=== PATIENT | female | born 1940 | race Caucasian/White ===

== ENCOUNTER → 2016-07-19 | Outpatient (CLI) | payer MEDICARE, BC | END | disposition home or self-care (01) | LOC: LABPAT 10:00 | PROVIDERS: ATTEND Anesthesiology | DX: Z01.810 Encounter for preprocedural cardiovascular examination (principal); I10 Essential (primary) hypertension | CPT/HCPCS: 93005 ==

== ENCOUNTER 2016-07-23 09:29 | Inpatient (IN) | payer MEDICARE, BC ==
[2016-07-17 17:44] VITALS: BMI 36.8
[~2016-07-23 09:29] MED LIST: DEXAMETHASONE SOD PHOSPHATE 10 MG/ML 1 ML VIAL IV ONE; HEPARIN SODIUM,PORCINE 5,000 UNIT/ML 1 ML VIAL SQ ONE; HYDROmorphone 1 MG/ML 1 ML SYRINGE IVP PRN; LACTATED RINGERS 1,000 ML IV SCH; MIDAZOLAM 2 MG/2 ML VIAL IV PRN; SCOPOLAMINE 1.5MG/72HR PATCH TRANSDERM ONE; ceFAZolin 2 GM in SODIUM CHLORIDE 0.9% 100 ML IVPB ONE
[2016-07-23] MEDS ORDERED: LIDOCAINE 1% 20 ML VIAL (10MG/ML) FOR IV START INTRADERMA ONE (10:45)
[2016-07-23] MEDS: ONDANSETRON 4 MG/2 ML VIAL IVP ONE ×2 (10:52→15:57)
[2016-07-23] MEDS ORDERED: PROPOFOL 10 MG/ML 20 ML VIAL IV ONE (12:48)
[2016-07-23] MEDS ORDERED: GLYCOPYRROLATE 0.2 MG/ML 2 ML VIAL ONE (12:48)
[2016-07-23] MEDS ORDERED: NEOSTIGMINE 1 MG/ML 10 ML VIAL ONE (12:48)
[2016-07-23] MEDS ORDERED: fentaNYL (PF) 50 MCG/ML 2 ML AMP ONE (12:48)
[2016-07-23] MEDS ORDERED: LIDOCAINE 1% INJ 10MG/ML (20 ML MDV) ONE (12:48)
[2016-07-23] MEDS ORDERED: HYDROmorphone (PF) 1 MG/ML ONE (12:48)
[2016-07-23] MEDS ORDERED: MIDAZOLAM 2 MG/2 ML VIAL ONE (12:48)
[2016-07-23] MEDS ORDERED: ROCURONIUM BROMIDE 10 MG/ML 10 ML VIAL IV ONE (12:48)
[2016-07-23] MEDS ORDERED: SUCCINYLCHOLINE CHLORIDE VIAL 200 MG/10 ML VIAL IV ONE (12:48)
[2016-07-23] MEDS ORDERED: HEPARIN SODIUM,PORCINE 5,000 UNIT/ML 1 ML VIAL SQ ONE (12:50)
[2016-07-23] MEDS ORDERED: LACTATED RINGERS 1,000 ML IV ONE (14:52)
[2016-07-23] MEDS ORDERED: ONDANSETRON 4 MG/2 ML VIAL IVP PRN (15:01)
[2016-07-23] MEDS ORDERED: NALOXONE 0.4 MG/ML 1 ML VIAL IV PRN (15:01)
[2016-07-23] MEDS ORDERED: HYDROmorphone 1 MG/ML 1 ML SYRINGE IV PRN (15:01)
--- NOTE | 2016-07-23 15:01 | P.OP ---
Date of Procedure: 07/23/16 Preoperative Diagnosis: Incarcerated ventral hernia Postoperative Diagnosis: Same Procedure(s) Performed: Take down adhesions reduction of incarcerated ventral hernia, partial omentectomy, ventral hernia repair with mesh Anesthesia: MARTINA Surgeon: Madonna Mathews Estimated Blood Loss (ml): 10 IV fluids (ml): 1,000 Pathology: other (Omentum, hernia sac) Condition: stable Disposition: PACU Indications for Procedure: 75-year-old with incarcerated ventral hernia Operative Findings: Incarcerated ventral hernia with colon, and omentum in the sac Description of Procedure: Procedure: 1. Reduction and repair incarcerated ventral hernia with mesh 2. Partial omentectomy 3. Takedown of adhesions Mrs. Scott is a 75-year-old white female who was initially seen with a positive Corgard test for her colon. An attempt at colonoscopy was unable to be completed secondary to an incarcerated ventral hernia. The colonoscope was entered into the hernia could not be advanced. She has therefore been recommended to undergo hernia repair after which she will have a colonoscopy. The hernia has been present for many years is large, the protrusion was approximately 25 cm x 10 cm and was incarcerated. The patient was brought to the operating room and following induction of general anesthesia the abdomen was prepped and draped in a sterile fashion. Midline incision was made and carried down to the fascia of the anterior superior abdominal wall. This was followed down to the area of the hernia. The skin was dissected free from the hernia sac and the sac itself was noted to be protuberant approximately 25 cm x 10 cm. The sac was able to be opened and upon opening the sac is noted to be omentum and colon within the sac. The omentum was adherent to the surrounding fascia above the opening of the hernia. This was taken down using the Harmonic scalpel. After the omentum had been freed from the adhesions, it was noted that the inferior portion of the omentum was oozing . This was therefore removed using the Harmonic scalpel. Following this to facilitate entry into the peritoneal cavity of the colon and remaining omentum was necessary to enlarge the hernia defect opening several centimeters cephalad. The hernia sac contents were then reduced back into the peritoneal cavity. This was done after assured that no bleeding was occurring. The ball of the hernia sac was removed using the Harmonic scalpel and sent to pathology. The defect in the anterior abdominal wall was closed using interrupted Ethibond sutures. The longitudinal distance of the hernia defect was approximately 5 cm. This was followed by an onlay ultra-light pro mesh which was secured using a Prolene suture. The size of the mesh was approximately 6 x 3 cm. The wound was then well irrigated. A 15 Derrell-Matthews drain was placed. The subcutaneous tissues were reapproximated using 3-0 Vicryl suture. The skin was reapproximated using agustina. The drain was secured using a nylon suture. The patient tolerated the procedure in stable condition. All instrument and sponge counts were correct at the end of the procedure.
[2016-07-23] MEDS ORDERED: ALPRAZolam 0.25 MG TAB PO PRN (18:23)
[2016-07-23] MEDS: DEXTROSE 5%-0.45% NACL 1,000 ML IV SCH (18:26)
[2016-07-23] MEDS: HEPARIN SODIUM,PORCINE 5,000 UNIT/ML 1 ML VIAL SQ SCH ×2 (18:26→23:18)
[2016-07-23] MEDS: CITALOPRAM HYDROBROMIDE 10 MG TAB PO SCH (20:21)
[2016-07-24] MEDS: HYDROcodone/APAP 5-325MG 1 EACH TAB PO PRN ×3 (02:35→22:43)
[2016-07-24] MEDS: DEXTROSE 5%-0.45% NACL 1,000 ML IV SCH ×3 (02:37→20:49)
[2016-07-24] MEDS: HEPARIN SODIUM,PORCINE 5,000 UNIT/ML 1 ML VIAL SQ SCH ×2 (07:42→17:50)
[2016-07-24] MEDS: LISINOPRIL-HCTZ 20-25 MG 1 EACH TAB PO SCH (07:43)
[2016-07-24] MEDS ORDERED: PANTOPRAZOLE 40 MG/10 ML VIAL IV SCH (09:00)
--- NOTE | 2016-07-24 09:41 | P.CONS ---
History of Present Illness - History of Present Illness 75-year-old female post reduction repair of incarcerated ventral hernia with mesh takedown of adhesions. Patient states she's been up ambulating without difficulty. Patient states she's has adequate pain control. Review of Systems Gastrointestinal: Reports abdominal pain Past Medical History Past Medical History: Hypertension, Thyroid Disorder Additional Past Medical History / Comment(s): PAST OLD hx migraines. Varicose vein. HX PARATHYROID PROB. "EARLY DIVERTICULOSIS." HAS VENTRAL HERNIA History of Any Multi-Drug Resistant Organisms: None Reported Past Surgical History: Breast Surgery, Section Additional Past Surgical History / Comment(s): Parathyroidectomy. Removal of cyst rt breast. EXC MULT Cysts ON SCALP. COLONOSCOPY. Past Anesthesia/Blood Transfusion Reactions: No Reported Reaction Past Psychological History: Anxiety, Depression Smoking Status: Never smoker Past Alcohol Use History: None Reported Past Drug Use History: None Reported - Past Family History Mother Family Medical History: Cancer Medications and Allergies Home Medications Medication Instructions Recorded Confirmed Type Lisinopril-Hctz 20-25 mg 1 tab PO DAILY 12/07/13 07/23/16 History [Zestoretic 20-25] ALPRAZolam [Alprazolam] 0.25 mg PO TID PRN 07/17/16 07/23/16 History Acetaminophen [Tylenol] 500 mg PO Q4-6H PRN 07/17/16 07/23/16 History Citalopram Hydrobromide [CeleXA] 10 mg PO HS 07/17/16 07/23/16 History Calcium/Magnesium/Zinc 1 each PO BID 07/24/16 07/24/16 History [Cjxhiwj-Wyrmttbpy-Flci Tablet] Allergies Allergy/AdvReac Type Severity Reaction Status Date / Time acetaminophen Allergy can't stop Verified 07/17/16 17:14 [From Tylenol-Codeine #3] talking codeine Allergy can't stop Verified 07/17/16 17:14 [From Tylenol-Codeine #3] talking Physical Exam Vitals: Vital Signs Temp Pulse Resp BP Pulse Ox 07/24/16 07:00 97.6 F 16 121/84 96 07/24/16 01:49 97.6 F 77 16 110/59 97 07/23/16 19:57 97.6 F 76 16 109/67 100 07/23/16 18:15 65 102/59 100 07/23/16 18:00 70 96/53 100 07/23/16 17:45 67 103/72 96 07/23/16 17:30 75 90/56 97 07/23/16 17:15 69 92/48 97 07/23/16 17:00 96.9 F L 75 16 91/53 98 07/23/16 16:15 71 16 90/51 94 L 07/23/16 16:01 71 16 112/55 95 07/23/16 15:46 69 16 118/58 96 07/23/16 15:30 71 16 134/68 98 07/23/16 15:16 97.1 F L 74 16 119/69 96 07/23/16 10:26 97.7 F 58 L 18 173/81 100 Intake and Output 07/23/16 07/24/16 07/24/16 22:59 06:59 14:59 Intake Total 850 1000 Output Total 20 Balance 830 1000 Intake: IV 350 800 Dextrose 5%-0.45% NaCl 1, 300 800 000 ml @ 100 mls/hr IV . Q10H MICHELLE Rx#:[id number] Oral 500 200 Output: Drainage 20 Left Anterior Abdomen 20 Other: Voiding Method Toilet # Voids 1 2 Weight 88.451 kg - Constitutional General appearance: obese - EENT Eyes: PERRLA Ears: bilateral: normal - Neck Neck: normal ROM - Respiratory Respiratory: bilateral: CTA - Cardiovascular Rhythm: regular - Gastrointestinal Patient has abd binder on General gastrointestinal: soft - Integumentary Integumentary: normal - Neurologic Neurologic: CNII-XII intact - Musculoskeletal Musculoskeletal: gait normal - Psychiatric Psychiatric: A&O x's 3, appropriate affect, intact judgment & insight Results CBC & Chem 7: 07/23/16 10:40 Assessment and Plan Plan: assessment Post repair of ventral hernia with mesh takedown adhesions H hypertension hx hyperparathyroidism depression Plan will continue to monitor patient condtion medcally stable
--- NOTE | 2016-07-24 11:05 | CDI ---
In responding to this query, please exercise your independent professional judgment. The [facility] Coding Staff and Clinical Documentation Specialists appreciate your assistance in clarifying documentation, maintaining compliance with coding guidelines, accurately documenting patients condition and capturing severity of illness. The fact that a question is asked does not imply that any particular answer is desired or expected. Communication forms are a method of clarifying documentation and are not made part of the Legal Health Record. Thank you in advance for your clarification. Last Revision, August 2015 Chidi Pederson [address] [facility] [place] [address] Documentation Clarification Form Date: 07/24/2016 10:33:00 AM From: Maricel Marialuisa Admit Date: 07/23/2016 2:53:00 PM Patient Name: Cole Scott Visit Number: [id number] Discharge Date: Dr. Madonna Mathews Documentation in the Operative Report included partial omentectomy History/Risk factors: Incarcerated ventral hernia Pre-Operative Diagnosis: Incarcerated ventral hernia Postoperative Diagnosis: Same Clinical Indicators: Patient had a positive Corgard test for her colon. An attempt at colonoscopy was unable to be completed secondary to an incarcerated ventral hernia. Upon opening the sac is noted to be omentun and colon within the sac, this was taken down using the Harmonic scalpel Treatment: Reduction and repair incarcerated ventral hernia with mesh Partial omentectomy Takedown of adhesions In order to capture the severity of condition, please specify the following for the Partial Omentectomy: Anatomical site of the body system on which the procedure is performed Greater Omentum Lesser Omentum Other (specify) Please document as an addendum to your operative report in order to capture severity of illness and risk of mortality. FYI: Press F11 to launch patient chart Place X here if this finding has no clinical significance, is not applicable or if you are not able to provide any additional documentation. ERICD
--- NOTE | 2016-07-24 14:52 | P.PN ---
Subjective 75-year-old female being seen on rounds with the surgeon this morning patient is sitting up in bed. Patient states pain medication effective for pain control. Patient states she had been up ambulating short distance in the hallway Patient is postop done 07/23/2016 Take down adhesions reduction of incarcerated ventral hernia, partial omentectomy, ventral hernia repair with mesh for an incarcerated ventral hernia Objective - Vital Signs Vital signs: Vital Signs Temp 98 F 07/24/16 14:00 Pulse 80 07/24/16 14:00 Resp 16 07/24/16 14:00 BP 130/71 07/24/16 14:00 Pulse Ox 98 07/24/16 14:00 Intake & Output 07/23/16 07/24/16 07/24/16 18:59 06:59 18:59 Intake Total 1150 1800 Output Total 310 20 Balance 840 1780 Weight 88.451 kg Intake: IV 1150 1100 Dextrose 5%-0.45% NaCl 1, 1100 000 ml @ 100 mls/hr IV . Q10H MICHELLE Rx#:[id number] Oral 700 Output: Drainage 20 Left Anterior Abdomen 20 Urine 300 Estimated Blood Loss 10 Other: Voiding Method Toilet # Voids 2 2 - Exam GENERAL APPEARANCE: 75-year-old female patient is alert, oriented 3, in no acute distress. Pleasant cooperative sitting up in bed VITAL SIGNS: Reviewed HEENT: Head is normocephalic and atraumatic. Pupils are equal and reactive. The nares are patent. Oropharynx is clear without lesions. NECK: Supple without lymphadenopathy. Traches midline. HEART: S1, S2. Regular rate and rhythm. No murmur noted denying chest pain LUNGS: No crackles or wheezes are heard. Essentially clear adequate air movement ABDOMEN: Soft,, nondistended No peritoneal signs. No palpable organomegaly or masses. Abdominal binder in place Derrell-Matthews drain in place dressings dry at the surgical site no redness slight surgical tenderness a few hypoactive bowel tones states passing gas no stool no difficulty in urinating and tolerating diet with no nausea EXTREMITIES: Normal skin color and turgor. No cyanosis, rash, ulceration, clubbing or edema. Radial pedal pulses are 2/4 bilaterally. NEUROLOGICAL: No focal deficits. Strength and sensation are grossly intact. - Labs CBC & Chem 7: 07/23/16 10:40 Assessment and Plan Plan: Impression Incarcerated ventral hernia Take down adhesions reduction of incarcerated ventral hernia, partial omentectomy, ventral hernia repair with mesh for incarcerated ventral hernia done on 07/23/2016 Depressive anxiety disorder nonspecified Parathyroidectomy history of Plan Continue postop surgical care DVT and GI prophylaxis Increase activity to the level of tolerance Abdominal binder when up Advance diet as tolerated Prepped for discharge within the next 24 hours if clinically stable The above dictated assessment and findings were discussed with dr Jovanny Corbett. Impression and the plan of care have been dictated as directed. Sarina Macario nurse practitioner acting as a scribe for Dr. Rubio
[2016-07-24] MEDS: CITALOPRAM HYDROBROMIDE 10 MG TAB PO SCH (20:48)
[2016-07-25] MEDS: HEPARIN SODIUM,PORCINE 5,000 UNIT/ML 1 ML VIAL SQ SCH ×2 (00:25→07:14)
[2016-07-25] MEDS: LISINOPRIL-HCTZ 20-25 MG 1 EACH TAB PO SCH (07:14)
[2016-07-25] MEDS: DEXTROSE 5%-0.45% NACL 1,000 ML IV SCH (07:16)
[2016-07-25 07:27] VITALS: BP 184/97; PULSE 77; RESP 18; TEMP 97.7
[2016-07-25] MEDS ORDERED: PANTOPRAZOLE 40 MG TABLET PO SCH (07:30)
[2016-07-25] MEDS: HYDROcodone/APAP 5-325MG 1 EACH TAB PO PRN (07:34)
--- NOTE | 2016-07-25 09:17 | P.DS ---
Providers Date of admission: 07/23/16 14:53 Expected date of discharge: 07/25/16 Attending physician: Madonna Mathews Consults: 07/23/16 22:25 Consult Physician Routine Consulting Provider: Lan Corbett Consult Reason/Comments: medical management Do you want consulting provider notified?: Yes, Notify in am Primary care physician: Lan Corbett Hospital Course: 75-year-old female presented on an elective basis to undergo repair of an incarcerated ventral hernia by Dr. Rubio Patient is postop done 07/23/2016 Take down adhesions reduction of incarcerated ventral hernia, partial omentectomy, ventral hernia repair with mesh for an incarcerated ventral hernia. A Derrell-Matthews drain was placed. Postop there were no postop events. the surgeon did see the patient on the 25 of July and was felt to be appropriate to be discharged home. The plan was to leave the Derrell-Matthews drain in place until seen in a follow-up visit with Dr. Rubio in the office Impression Incarcerated ventral hernia Take down adhesions reduction of incarcerated ventral hernia, partial omentectomy, ventral hernia repair with mesh for incarcerated ventral hernia done on 07/23/2016 Depressive anxiety disorder nonspecified History of Parathyroidectomy The above dictated assessment and findings were discussed with dr Jovanny Corbett. Impression and the plan of care have been dictated as directed. Sarina Macario nurse practitioner acting as a scribe for Dr. Rubio Plan - Discharge Summary New Discharge Prescriptions: HYDROcodone/APAP 5-325MG [[place] 5-325] 1 each PO Q4HR PRN #30 tab PRN Reason: Moderate Pain Discharge Medication List Lisinopril-Hctz 20-25 mg [Zestoretic 20-25] 1 tab PO DAILY 12/07/13 [History] ALPRAZolam [Alprazolam] 0.25 mg PO TID PRN 07/17/16 [History] Acetaminophen [Tylenol] 500 mg PO Q4-6H PRN 07/17/16 [History] Citalopram Hydrobromide [CeleXA] 10 mg PO HS 07/17/16 [History] Calcium/Magnesium/Zinc [Bxrstqk-Tldloypvt-Ejda Tablet] 1 each PO BID 07/24/16 [ History] HYDROcodone/APAP 5-325MG [[place] 5-325] 1 each PO Q4HR PRN #30 tab 07/25/16 [Rx] Follow up Appointment(s)/Referral(s): Madonna Mathews MD [STAFF PHYSICIAN] - 07/30/16 Activity/Diet/Wound Care/Special Instructions: Keep the Derrell-Matthews drain in place until seen in follow-up visit with Dr. Corbett in the office next week Nursing to instruct patient on draining the Derrell-Matthews drain To wear the abdominal binder at all times except when showering Discharge Disposition: HOME SELF-CARE
--- NOTE | 2016-07-31 09:57 | CDI ---
In responding to this query, please exercise your independent professional judgment. The [facility] Coding Staff and Clinical Documentation Specialists appreciate your assistance in clarifying documentation, maintaining compliance with coding guidelines, accurately documenting patients condition and capturing severity of illness. The fact that a question is asked does not imply that any particular answer is desired or expected. Communication forms are a method of clarifying documentation and are not made part of the Legal Health Record. Thank you in advance for your clarification. Last Revision, August 2015 Chidi Pederson [address] [facility] [place] [address] Documentation Clarification Form Date: 07/24/2016 10:33:00 AM From: Maricel Marialuisa Admit Date: 07/23/2016 2:53:00 PM Patient Name: Cole Scott Visit Number: [id number] Discharge Date: Dr. Madonna Mathews Documentation in the Operative Report included partial omentectomy History/Risk factors: Incarcerated ventral hernia Pre-Operative Diagnosis: Incarcerated ventral hernia Postoperative Diagnosis: Same Clinical Indicators: Patient had a positive Corgard test for her colon. An attempt at colonscopy was unable to be completed secondary to a incarcerated ventral hernia. Upon opening the sac is noted to be omentun and colon within the sac, this was taken down using the Harmonic scalpel Treatment: Reduction and repair incarcerated ventral hernia with mesh Partial omentectomy Takedown of adhesions In order to capture the severity of the condition, please specify the following for the Partial Omentectomy: Anatomical site of the body system on which the procedure is performed Greater Omentum Lesser Omentum Other Specified Please document as an addendum to your operative report in order to capture severity of illness and risk of mortality. FYI: Press F11 to launch patient chart Place X here if this finding has no clinical significance, is not applicable or if you are not able to provide any additional documentation. ERICD
--- NOTE | 2016-08-06 10:19 | CDI ---
In responding to this query, please exercise your independent professional judgment. The [facility] Coding Staff and Clinical Documentation Specialists appreciate your assistance in clarifying documentation, maintaining compliance with coding guidelines, accurately documenting patients condition and capturing severity of illness. The fact that a question is asked does not imply that any particular answer is desired or expected. Communication forms are a method of clarifying documentation and are not made part of the Legal Health Record. Thank you in advance for your clarification. Last Revision, August 2015 Chidi Pederson [address] [facility] [place] [address] Documentation Clarification Form Date: 07/24/2016 10:33:00 AM From: Maricel Marialuisa Admit Date: 07/23/2016 2:53:00 PM Patient Name: Cole Scott Visit Number: [id number] Discharge Date: Dr. Madonna Mathews Documentation in the Operative Report included partial omentectomy History/Risk factors: Incarcerated ventral hernia Pre-Operative Diagnosis: Incarcerated ventral hernia Postoperative Diagnosis: Same Clinical Indicators: Patient had a positive Corgard test for her colon. An attempt at colonscopy was unable to be completed secondary to a incarcerated ventral hernia. Upon opening the sac is noted to be omentun and colon within the sac, this was taken down using the Harmonic scalpel Treatment: Reduction and repair incarcerated ventral hernia with mesh Partial omentectomy Takedown of adhesions In order to capture the severity of condition, please specify the following for the Partial Omentectomy: Anatomical site of the body system on which the procedure is performed Greater Omentum Lesser Omentum Other Specified Please document as an addendum to your operative report in order to capture severity of illness and risk of mortality. FYI: Press F11 to launch patient chart Place X here if this finding has no clinical significance, is not applicable or if you are not able to provide any additional documentation. ERICD
--- NOTE | 2016-08-07 09:19 | OP ---
DATE OF SERVICE: 07/23/2016 SURGEON: BRYAN BROWN MD MUCK HAULER: PREOPERATIVE DIAGNOSIS: POSTOPERATIVE DIAGNOSIS: OPERATION: ANESTHESIA: ESTIMATED BLOOD LOSS: SPECIMENS REMOVED: COMPLICATIONS: ADDENDUM: Procedure was performed on 07/23/2016. The procedure was a ventral hernia repair with a partial omentectomy. It was the greater omentum which was removed. This is clarification on operative dictation. Again, it was the greater omentum which was removed.
--- NOTE | 2016-08-20 07:27 | P.PN ---
Progress Note - Text In clarification of the operative report from Mu Scott it should be noted that it was the greater omentum which was removed. This was from operative date 07/23/16.
== END 2016-07-25 11:45 | disposition home or self-care (01) | DRG 355 ==
LOC: OR 09:29 → 3SUR 14:53
PROVIDERS: ADMIT Surgery; ATTEND Surgery
PROC: 0DBS0ZZ (ICD-10-PCS; principal; 2016-07-23 11:50)
PROC: 0WUF0JZ Supplement Abdominal Wall with Synthetic Substitute, Open Approach (ICD-10-PCS; principal; 2016-07-23 11:50)
DX: K43.6 Other and unspecified ventral hernia with obstruction, without gangrene (principal); I10 Essential (primary) hypertension; F32.9 Major depressive disorder, single episode, unspecified; F41.9 Anxiety disorder, unspecified; Z79.899 Other long term (current) drug therapy
CPT/HCPCS: 84132; 88302; 88305

== ENCOUNTER → 2017-03-20 | Outpatient (CLI) | payer MEDICARE, BC ==
[2017-03-20 09:03] LABS: Basophils # (A) 0.1 k/uL (0-0.2); Basophils % (A) 1 %; CH 31.4; CHCM 32.5; Eosinophils # (A) 0.3 k/uL (0-0.7); Eosinophils % (A) 4 %; HCT 48.1 % (34.0-46.0); HDW 2.43; HGB 15.4 gm/dL (11.4-16.0); Luc # (Auto) 0.11; Luc % (Auto) 1; Lymphocytes # (A) 1.6 k/uL (1.0-4.8); Lymphocytes % (A) 21 %; MCH 31.2 pg (25.0-35.0); MCHC 32.1 g/dL (31.0-37.0); MCV 97.1 fL (80.0-100.0); Mean Platelet Volume 5.9; Monocytes # (A) 0.4 k/uL (0-1.0); Monocytes % (A) 6 %; Neutrophils # (A) 5.1 k/uL (1.3-7.7); Neutrophils % (A) 67 %; RBC 4.95 m/uL (3.80-5.40); RDW 13.4 % (11.5-15.5); WBC 7.6 k/uL (3.8-10.6); WBC (Perox) 7.31
[2017-03-20 09:17] LABS: ALT 28 U/L (9-52); AST 20 U/L (14-36); Alkaline Phosphatase 87 U/L (38-126); Anion Gap 9 mmol/L; Blood Urea Nitrogen 18 mg/dL (7-17); Calcium 9.8 mg/dL (8.4-10.2); Carbon Dioxide 30 mmol/L (22-30); Chloride 100 mmol/L (98-107); Cholesterol 212 mg/dL (<200); Glucose 97 mg/dL (74-99); HDL Cholesterol 86 mg/dL (40-60); Non-African American GFR(MDRD) >60 (>60 ml/min/1.73 sqM); Potassium 4.1 mmol/L (3.5-5.1); Sodium 139 mmol/L (137-145); Total Bilirubin 0.7 mg/dL (0.2-1.3); Total Protein 7.4 g/dL (6.3-8.2)
[2017-03-20 11:26] LABS: Hemoglobin A1C 5.4 % (4.2-6.1)
== END | disposition home or self-care (01) ==
LOC: LABWHC1 08:29
PROVIDERS: ATTEND Family Medicine
DX: E21.3 Hyperparathyroidism, unspecified (principal); E78.5 Hyperlipidemia, unspecified; R73.01 Impaired fasting glucose
CPT/HCPCS: 36415; 80053; 80061; 83036; 83970; 84443; 85025

== ENCOUNTER → 2017-08-11 | Outpatient (CLI) | payer MEDICARE, BC ==
--- NOTE | 2017-08-11 11:42 | XR ---
EXAM TYPE: LUMBAR SPINE X RAY SERIES COMPARISON: NONE HISTORY: Pain TECHNIQUE: 4 views are submitted. FINDINGS: There is diffuse osteopenia with curvature the spine. Severe multilevel facet arthropathy with grade 1 anterolisthesis L3 on L4 and L4 on L5. Multilevel severe degenerative disc disease. IMPRESSION: 1. Multilevel severe degenerative disc disease and facet arthropathy. Grade 1 anterolisthesis L3 on L 4 and L4 on L5. Recommend follow-up MRI.
== END | disposition home or self-care (01) ==
LOC: RADXRMAIN 11:17
PROVIDERS: ATTEND Family Medicine
DX: M43.16 Spondylolisthesis, lumbar region (principal); M51.36 Other intervertebral disc degeneration, lumbar region; M46.96 Unspecified inflammatory spondylopathy, lumbar region
CPT/HCPCS: 72100

== ENCOUNTER → 2018-09-01 | Outpatient (CLI) | payer MEDICARE, BC ==
[2018-09-01 12:42] LABS: HCT 44.3 % (34.0-46.0); HGB 14.8 gm/dL (11.4-16.0); MCH 30.9 pg (25.0-35.0); MCHC 33.5 g/dL (31.0-37.0); MCV 92.3 fL (80.0-100.0); Mean Platelet Volume 6.7; Platelet Count 330 k/uL (150-450); RDW 14.1 % (11.5-15.5); WBC 9.2 k/uL (3.8-10.6)
[2018-09-01 12:51] LABS: Calcium 10.5 mg/dL (8.4-10.2); Potassium 4.4 mmol/L (3.5-5.1); Total Bilirubin 0.5 mg/dL (0.2-1.3); Total Protein 6.9 g/dL (6.3-8.2)
== END | disposition home or self-care (01) ==
LOC: LABPAT 11:30
PROVIDERS: ATTEND Surgery Plastic and Reconstructive Surgery
DX: Z01.812 Encounter for preprocedural laboratory examination (principal)
CPT/HCPCS: 36415; 80053; 85027

== ENCOUNTER 2018-09-11 06:13 | Day surgery (SDC) | payer MEDICARE, BC ==
[2018-09-10 08:49] VITALS: BMI 41.3
--- NOTE | 2018-09-11 05:54 | P.GSHP ---
History of Present Illness H&P Date: 09/11/18 CHIEF COMPLAINT: GERD HISTORY OF PRESENT ILLNESS: The patient is a 77-year-old female who presents reports gastroesophageal reflux disease. Upper endoscopy was offered for further evaluation and management. PAST MEDICAL HISTORY: Please see list. PAST SURGICAL HISTORY: Please see list. MEDICATIONS: Please see list. ALLERGIES: Please see list. SOCIAL HISTORY: No illicit drug use FAMILY HISTORY: No reports of Crohn disease or ulcerative colitis. REVIEW OF ORGAN SYSTEMS: CONSTITUTIONAL: No reports of fevers or chills. GI: Denies any blood in stools or constipation. PHYSICAL EXAM: VITAL SIGNS: Stable GENERAL: Well-developed and pleasant in no acute distress. HEENT: No scleral icterus. Extraocular movements grossly intact. Moist buccal mucosa. NECK: Supple without lymphadenopathy. CHEST: Unlabored respirations. Equal bilateral excursions. CARDIOVASCULAR: Regular rate and rhythm. Distal 2+ pulses. ABDOMEN: Soft, nondistended. MUSCULOSKELETAL: No clubbing, cyanosis, or edema. ASSESSMENT: 1. Gastroesophageal reflux disease PLAN: 1. Recommend proceeding with an upper endoscopy Past Medical History Past Medical History: Cancer, Hypertension Additional Past Medical History / Comment(s): hx Varicose vein. HX PARATHYROID PROBLEM, had one removed, diverticulosis, pt states "early uterine cancer" History of Any Multi-Drug Resistant Organisms: None Reported Past Surgical History: Breast Surgery, Section, Hernia Repair, Hysterectomy Additional Past Surgical History / Comment(s): Parathyroidectomy. Removal of cyst yu breast. EXC MULT Cysts ON SCALP. COLONOSCOPY. Past Anesthesia/Blood Transfusion Reactions: No Reported Reaction Smoking Status: Never smoker - Past Family History Mother Family Medical History: Cancer Additional Family Medical History / Comment(s): breast, lung cancer Medications and Allergies Home Medications Medication Instructions Recorded Confirmed Type Lisinopril-Hctz 20-25 mg 1 tab PO DAILY 12/07/13 09/10/18 History [Zestoretic 20-25] ALPRAZolam [Alprazolam] 0.25 mg PO TID PRN 07/17/16 09/10/18 History Acetaminophen [Tylenol] 500 mg PO Q4-6H PRN 07/17/16 09/10/18 History Citalopram Hydrobromide [CeleXA] 10 mg PO HS 07/17/16 09/10/18 History Calcium/Magnesium/Zinc 1 each PO BID 07/24/16 09/10/18 History [Nmyltha-Vlzjziwkw-Tdzr Tablet] Aspirin EC [Ecotrin] 325 mg PO DAILY PRN 05/09/17 09/10/18 History Multivit-Min/Iron/Folic/Lutein 1 each PO DAILY 05/09/17 09/10/18 History [Centrum Silver Women Tablet] Cholecalciferol [Vitamin D3] 1,000 unit PO DAILY 09/10/18 09/10/18 History Fluticasone Nasal [place] [Flonase 1 spray EA NOSTRIL DAILY PRN 09/10/18 09/10/18 History Nasal [place]] diphenhydrAMINE [Benadryl] 25 mg PO DAILY PRN 09/10/18 09/10/18 History Allergies Allergy/AdvReac Type Severity Reaction Status Date / Time codeine AdvReac can't stop Verified 09/10/18 08:21 talking
[~2018-09-11 06:13] MED LIST changes: -HYDROmorphone 1 MG/ML 1 ML SYRINGE IVP PRN; +INDOCYANINE GREEN 25 MG VIAL IV STA; -LACTATED RINGERS 1,000 ML IV SCH; +MIDAZOLAM (PF) 2 MG/2 ML VIAL IV PRN; -MIDAZOLAM 2 MG/2 ML VIAL IV PRN; +ONDANSETRON 4 MG/2 ML VIAL IVP ONE; -SCOPOLAMINE 1.5MG/72HR PATCH TRANSDERM ONE; -ceFAZolin 2 GM in SODIUM CHLORIDE 0.9% 100 ML IVPB ONE; +ceFAZolin IN SWFI 2 GM/20 ML SYRINGE IVP ONE; +fentaNYL (PF) 50 MCG/ML 2 ML AMP IV PRN
[2018-09-11] MEDS ORDERED: LIDOCAINE 1% 20 ML VIAL (10MG/ML) FOR IV START INTRADERMA ONE (06:52)
[2018-09-11] MEDS: LACTATED RINGERS 1,000 ML IV SCH ×2 (06:52→07:34)
[2018-09-11] MEDS ORDERED: MIDAZOLAM 2 MG/2 ML VIAL ONE (07:33)
[2018-09-11] MEDS ORDERED: INDOCYANINE GREEN 25 MG VIAL IV ONE (07:33)
[2018-09-11] MEDS ORDERED: fentaNYL (PF) 50 MCG/ML 2 ML AMP ONE (07:33)
[2018-09-11] MEDS ORDERED: ROCURONIUM BROMIDE 10 MG/ML 10 ML VIAL IV ONE (07:33)
[2018-09-11] MEDS ORDERED: GLYCOPYRROLATE 0.2 MG/ML 2 ML VIAL ONE (07:33)
[2018-09-11] MEDS ORDERED: PROPOFOL 10 MG/ML 20 ML VIAL IV ONE (07:33)
[2018-09-11] MEDS ORDERED: NEOSTIGMINE 1 MG/ML 10 ML VIAL ONE (07:33)
[2018-09-11] MEDS ORDERED: LIDOCAINE 1% INJ 10MG/ML (20 ML MDV) ONE (07:33)
[2018-09-11] MEDS ORDERED: SUCCINYLCHOLINE CHLORIDE 100 MG/5 ML SYR IV ONE (07:33)
[2018-09-11] MEDS ORDERED: ePHEDrine SULFATE/0.9% NACL/PF 50 MG/5 ML SYRINGE IV ONE (07:33)
[2018-09-11] MEDS ORDERED: BUPIVACAIN-EPI 0.5%-1:200,000 30 ML VIAL SQ ONE (07:35)
[2018-09-11] MEDS ORDERED: LACTATED RINGERS 1,000 ML IV ONE (08:20)
--- NOTE | 2018-09-11 09:05 | P.OP ---
Date of Procedure: 09/11/18 Description of Procedure: SURGEON: GREGG ROJAS MD PREOPERATIVE DIAGNOSES: 1. Right upper quadrant abdominal pain 2. Chronic cholecystitis with multiple gallstones 3. Morbid obesity due to excess calories, BMI 41.4 4. Chronic depressive disorder 5. Hypertensive heart disease 6. Generalized anxiety disorder 7. Previous history of epigastric ventral hernia repair 8. Past history of breast cancer POSTOPERATIVE DIAGNOSES: 1. Right upper quadrant abdominal pain 2. Chronic cholecystitis with multiple gallstones 3. Morbid obesity due to excess calories, BMI 41.4 4. Chronic depressive disorder 5. Hypertensive heart disease 6. Generalized anxiety disorder 7. Previous history of epigastric ventral hernia repair 8. Past history of breast cancer 9. Moderate to severe epigastric peritoneal adhesions right upper quadrant from previous hernia repair OPERATION: Robotic-assisted da Tip Xi laparoscopic lysis of adhesions Robotic-assisted da Tip Xi laparoscopic cholecystectomy, multiport with FIREFLY ESTIMATED BLOOD LOSS: 5 mL. SPECIMENS REMOVED: Gallbladder. COMPLICATIONS: None. OPERATIVE FINDINGS: 1. Chronic cholecystitis with multiple gallstones 2. Severe epigastric including right upper quadrant adhesions from previous open ventral hernia repair INDICATIONS: The patient is a 77-year-old female who presents with multiple systematic gallstones Surgical intervention with a laparoscopic cholecystectomy was described at length including injury to the biliary tree, bleeding, infection, need for further surgery. Informed consent was obtained. Robotic assisted laparoscopic approach was described. Benefits and risks of the procedure including but not limited to bleeding, infection, injury to the biliary tree was described. Informed consent was obtained. DESCRIPTION OF PROCEDURE: Patient was brought to the operating room, placed in supine position. After general induction, the abdomen had been prepped and draped in standard sterile fashion. The robotic da Tip XI system was primed. After a timeout protocol was performed, the patient had been prepped and draped in standard sterile fashion. The patient was injected with indocyanine green. A 5 mm 0 degrees laparoscopic trocar entry was performed along the left upper quadrant. The abdomen insufflated to 15 mmHg pressure which was tolerated well. Diagnostic laparoscopy demonstrated no injury to bowel viscera or mesentery. The liver surface was unremarkable. Next, two 8 mm robotic ports were placed along the right upper abdomen. The camera 8-mm port was maintained along the epigastrium. Another 8 mm port was placed along the left upper abdominal wall after exchanging the 5 mm port. Please note that the ports were placed at least 10 to 15 cm away from the target anatomy of the gallbladder. The robot was docked along the left lateral abdomen. The patient was repositioned in reverse Trendelenburg position. Using a grasper for arm 3, a grasper for arm 4, including hook cautery for arm 1, the robotic system was docked and primed as described. Instruments were interchanged by the horticultural nursery assistant including hook cautery, Bovie cautery and clip appliers. I had sat at the console. Additional issue including vessel sealer was used during the case. At the left upper quadrant, a vessel sealer was used to address multiple adhesions along the epigastrium including the right upper quadrant that was obsecuring the liver and gallbladder. Using a 30 up scope, adhesions were lysed including along the gallbladder. The gallbladder fundus was retracted over the dome of the liver. Initial attention was brought to the infundibulum which was gently retracted in the inferior lateral approach. Using a grasper, the cystic duct including the cystic artery was carefully skeletonized. FIREFLY was used to identify the cystic artery and cystic structures. Large PLASTIC clips were used throughout the entire case. Using a clip stock blender 2 clips were placed proximally, and 1 clip was placed distally along the cystic duct and then cauterized with the cautery. Again care was taken to avoid any injury to the biliary tree as the common bile duct was clearly visualized during this portion of dissection. Next, the cystic artery was similarly clipped and cauterized. Electro-Bovie cautery was used to remove the gallbladder from the hepatic fossa. Hemostasis was checked and found to be adequate. The robot was undocked. I re-scrubbed into the case. Using a 10 mm Endo Catch bag via the left upper quadrant incision, the specimen was removed from the abdominal cavity. All pneumoperitoneum instruments were evacuated from the abdominal cavity. The incisions were reapproximated using 4-0 Monocryl in an interrupted subcuticular fashion. Fascial defects were less than 8 mm in size. Please note along the trocar sites, local anesthetic was placed as a field block prior to insertion of all instruments. Liquid glue was applied to the skin. At the end of the procedure needle, sponge, and instrument count had been verified correct by the surgical garment fitter. [facility] Intraoperative films were shared with the patient's family who were very pleased with the level of care. Plan - Discharge Summary Discharge Rx Participant: No New Discharge Prescriptions: No Action Lisinopril-Hctz 20-25 mg [Zestoretic 20-25] 1 tab PO DAILY Acetaminophen [Tylenol] 500 mg PO Q4-6H PRN PRN Reason: Pain Citalopram Hydrobromide [CeleXA] 10 mg PO HS ALPRAZolam [Alprazolam] 0.25 mg PO TID PRN PRN Reason: Anxiety Calcium/Magnesium/Zinc [Zairldw-Vnvbbioqd-Gahb Tablet] 1 each PO BID Aspirin EC [Ecotrin] 325 mg PO DAILY PRN PRN Reason: Headache Multivit-Min/Iron/Folic/Lutein [Centrum Silver Women Tablet] 1 each PO DAILY Fluticasone Nasal [place] [Flonase Nasal [place]] 1 spray EA NOSTRIL DAILY PRN PRN Reason: allergies Cholecalciferol [Vitamin D3] 1,000 unit PO DAILY diphenhydrAMINE [Benadryl] 25 mg PO DAILY PRN PRN Reason: allergies Discharge Medication List Lisinopril-Hctz 20-25 mg [Zestoretic 20-25] 1 tab PO DAILY 12/07/13 [History] ALPRAZolam [Alprazolam] 0.25 mg PO TID PRN 07/17/16 [History] Acetaminophen [Tylenol] 500 mg PO Q4-6H PRN 07/17/16 [History] Citalopram Hydrobromide [CeleXA] 10 mg PO HS 07/17/16 [History] Calcium/Magnesium/Zinc [Zjdbnge-Uowrvkgiv-Vrsn Tablet] 1 each PO BID 07/24/16 [History] Aspirin EC [Ecotrin] 325 mg PO DAILY PRN 05/09/17 [History] Multivit-Min/Iron/Folic/Lutein [Centrum Silver Women Tablet] 1 each PO DAILY 05/09/17 [History] Cholecalciferol [Vitamin D3] 1,000 unit PO DAILY 09/10/18 [History] Fluticasone Nasal [place] [Flonase Nasal [place]] 1 spray EA NOSTRIL DAILY PRN 09/10/18 [History] diphenhydrAMINE [Benadryl] 25 mg PO DAILY PRN 09/10/18 [History]
[2018-09-11 09:06] VITALS: TEMP 98
[2018-09-11] MEDS ORDERED: HYDROmorphone 1 MG/ML 1 ML SYRINGE IVP ONE (09:39)
[2018-09-11 09:58] VITALS: RESP 16
[2018-09-11 10:55] VITALS: BP 104/60; PULSE 81
== END 2018-09-11 11:34 | disposition home or self-care (01) ==
LOC: OR 06:13
PROVIDERS: ATTEND Surgery Plastic and Reconstructive Surgery
DX: K80.10 Calculus of gallbladder with chronic cholecystitis without obstruction (principal); E66.01 Morbid (severe) obesity due to excess calories; F32.9 Major depressive disorder, single episode, unspecified; F41.1 Generalized anxiety disorder; I11.9 Hypertensive heart disease without heart failure; Z68.41 Body mass index [BMI] 40.0-44.9, adult; Z79.82 Long term (current) use of aspirin; Z85.3 Personal history of malignant neoplasm of breast; Z90.49 Acquired absence of other specified parts of digestive tract; Z79.51 Long term (current) use of inhaled steroids; Z79.899 Other long term (current) drug therapy; Z88.5 Allergy status to narcotic agent
CPT/HCPCS: 88304; 47562; J2250; J1644; J1100; J2710; J2405; J2001; J3010; J1170; J0330; J2704; J0690

== ENCOUNTER → 2018-12-04 | Outpatient (CLI) | payer MEDICARE, BC ==
[2018-12-04 10:11] LABS: HCT 45.2 % (34.0-46.0); HGB 15.1 gm/dL (11.4-16.0); MCH 31.4 pg (25.0-35.0); MCHC 33.3 g/dL (31.0-37.0); MCV 94.2 fL (80.0-100.0); Mean Platelet Volume 6.7; Platelet Count 290 k/uL (150-450); RDW 14.2 % (11.5-15.5); WBC 8.8 k/uL (3.8-10.6)
== END | disposition home or self-care (01) ==
LOC: LABPAT 09:26
PROVIDERS: ATTEND Surgery Plastic and Reconstructive Surgery
DX: Z01.812 Encounter for preprocedural laboratory examination (principal)
CPT/HCPCS: 85027

== ENCOUNTER 2018-12-07 06:16 | Day surgery (SDC) | payer MEDICARE, BC ==
[2018-12-01 15:36] VITALS: BMI 42.0
[~2018-12-07 06:16] MED LIST changes: -DEXAMETHASONE SOD PHOSPHATE 10 MG/ML 1 ML VIAL IV ONE; -INDOCYANINE GREEN 25 MG VIAL IV STA; -MIDAZOLAM (PF) 2 MG/2 ML VIAL IV PRN; -ONDANSETRON 4 MG/2 ML VIAL IVP ONE; -fentaNYL (PF) 50 MCG/ML 2 ML AMP IV PRN
[2018-12-07] MEDS ORDERED: DEXAMETHASONE SOD PHOSPHATE 10 MG/ML 1 ML VIAL IV ONE (06:27)
[2018-12-07] MEDS ORDERED: LACTATED RINGERS 1,000 ML IV SCH (06:27)
[2018-12-07] MEDS ORDERED: MIDAZOLAM 2 MG/2 ML VIAL IV PRN (06:27)
[2018-12-07] MEDS ORDERED: ONDANSETRON 4 MG/2 ML VIAL IVP ONE (06:27)
[2018-12-07] MEDS ORDERED: LIDOCAINE 1% 20 ML VIAL (10MG/ML) FOR IV START INTRADERMA PRN (06:27)
[2018-12-07 06:48] LABS: Glucose,Whole Blood 113 mg/dL (75-99)
[2018-12-07] MEDS ORDERED: LACTATED RINGERS 1,000 ML IV ONE ×3 (06:52→09:44)
[2018-12-07] MEDS ORDERED: fentaNYL (PF) 50 MCG/ML 2 ML AMP IVP ONE (07:03)
[2018-12-07] MEDS ORDERED: MIDAZOLAM (PF) 2 MG/2 ML VIAL IVP ONE (07:04)
--- NOTE | 2018-12-07 07:22 | P.ANPRN ---
Procedure Note - Anesthesia - Nerve Block Performed Left Transversus Abdominis Single Time Out Performed: Yes Date of Procedure: 12/07/18 Procedure Start Time: :02 Procedure Stop Time: :10 Indication: Requested by physician Specifically requested for management of pain by DrSun: Linda Tran Sedation Type: Sedate with meaningful contact maintained Preparation: Sterile Prep Position: Supine Needle Types: Pajunk Needle Gauge: 20 Technique: Ultrasound Injectate: 0.5% Ropivacaine (see comment for volume) (20 ml) Blood Aspirated: No Pain Paresthesia on Injection Noted: No Resistance on Injection: Normal Events: Uneventful and Well Tolerated
--- NOTE | 2018-12-07 07:56 | P.GSHP ---
History of Present Illness H&P Date: 12/07/18 CHIEF COMPLAINT: Inguinal hernia, left. HISTORY OF PRESENT ILLNESS: The patient is a 56-year-old female who presents with a history of swelling and pain along the left groin. She's noted increased swelling including pain of the area. Now she presents for repair of her inguinal hernia. PAST MEDICAL HISTORY: Please see list. PAST SURGICAL HISTORY: Please see list. MEDICATIONS: Please see list. ALLERGIES: Please see list. SOCIAL HISTORY: No illicit drug use FAMILY HISTORY: No reports of Crohn disease or ulcerative colitis. REVIEW OF ORGAN SYSTEMS: CONSTITUTIONAL: No reports of fevers or chills. No reports of weight loss despite prior attempts. GI: Denies any blood in stools or constipation. PHYSICAL EXAM: VITAL SIGNS: Stable GENERAL: Well-developed pleasant female in no acute distress. HEENT: No scleral icterus. Extraocular movements grossly intact. Moist buccal mucosa. NECK: Supple without lymphadenopathy. CHEST: Unlabored respirations. Equal bilateral excursions. CARDIOVASCULAR: Regular rate and rhythm. Distal 2+ pulses. ABDOMEN: Soft, nondistended. No peritoneal signs. Moderate tenderness left lower quadrant MUSCULOSKELETAL: No clubbing, cyanosis, or edema. ASSESSMENT: 1. Inguinal hernia, left initial and symptomatic. PLAN: 1. Recommend proceeding robotic inguinal repair with mesh with possible bilateral approach. 2. Benefits and risks of surgical intervention was discussed including possibility of open technique. 3. DVT prophylaxis. 4. Antibiotic prophylaxis. Past Medical History Past Medical History: Cancer, Hypertension, Thyroid Disorder Additional Past Medical History / Comment(s): hx- Varicose vein. HX PARATHYROID PROB., diverticulosis, "early uterine cancer", recent bronchitis tx with antibiotic and prednisone History of Any Multi-Drug Resistant Organisms: None Reported Past Surgical History: Breast Surgery, Section, Cholecystectomy, Hernia Repair, Hysterectomy Additional Past Surgical History / Comment(s): Parathyroidectomy. Removal of cyst rt breast. EXC MULT Cysts ON SCALP. COLONOSCOPY. Past Anesthesia/Blood Transfusion Reactions: No Reported Reaction Smoking Status: Never smoker - Past Family History Mother Family Medical History: Cancer Additional Family Medical History / Comment(s): breast, lung cancer Medications and Allergies Home Medications Medication Instructions Recorded Confirmed Type Lisinopril-Hctz 20-25 mg 1 tab PO DAILY 12/07/13 12/07/18 History [Zestoretic 20-25] ALPRAZolam [Alprazolam] 0.25 mg PO TID PRN 07/17/16 12/07/18 History Acetaminophen [Tylenol] 500 mg PO Q4-6H PRN 07/17/16 12/07/18 History Citalopram Hydrobromide [CeleXA] 10 mg PO HS 07/17/16 12/07/18 History Calcium/Magnesium/Zinc 1 each PO DAILY 07/24/16 12/01/18 History [Vgxtagr-Rtpjlodel-Shpu Tablet] Aspirin EC [Ecotrin] 325 mg PO DAILY PRN 05/09/17 12/01/18 History Multivit-Min/Iron/Folic/Lutein 1 each PO DAILY 05/09/17 12/01/18 History [Centrum Silver Women Tablet] Cholecalciferol [Vitamin D3] 1,000 unit PO DAILY 09/10/18 12/01/18 History Fluticasone Nasal [place] [Flonase 1 spray EA NOSTRIL DAILY PRN 09/10/18 12/01/18 History Nasal [place]] diphenhydrAMINE [Benadryl] 25 mg PO DAILY PRN 09/10/18 12/07/18 History Ibuprofen [Motrin] 600 mg PO Q8HR PRN #30 tab 09/11/18 12/01/18 Rx Allergies Allergy/AdvReac Type Severity Reaction Status Date / Time codeine AdvReac can't stop Verified 12/07/18 06:33 talking Surgical - Exam Vital Signs Temp Pulse Resp BP Pulse Ox 97.7 F 85 17 140/65 96 12/07/18 06:34 12/07/18 06:34 12/07/18 06:34 12/07/18 06:34 12/07/18 06:34 Results - Labs Abnormal Lab Results - Last 24 Hours (Table) 12/07/18 Range/Units 06:46 POC Glucose (mg/dL) 113 H (75-99) mg/dL
[2018-12-07] MEDS ORDERED: LIDOCAINE 1% INJ 10MG/ML (20 ML MDV) ONE (08:01)
[2018-12-07] MEDS ORDERED: ePHEDrine SULFATE/0.9% NACL/PF 50 MG/5 ML SYRINGE IV ONE (08:01)
[2018-12-07] MEDS ORDERED: ROCURONIUM BROMIDE 10 MG/ML 10 ML VIAL IV ONE (08:01)
[2018-12-07] MEDS ORDERED: GLYCOPYRROLATE 0.2 MG/ML 2 ML VIAL ONE (08:01)
[2018-12-07] MEDS ORDERED: ROPIVACAINE 5 MG/ML 30 ML VIAL ONE (08:01)
[2018-12-07] MEDS ORDERED: SUCCINYLCHOLINE CHLORIDE 100 MG/5 ML SYR IV ONE (08:01)
[2018-12-07] MEDS ORDERED: PROPOFOL 10 MG/ML 20 ML VIAL IV ONE (08:01)
[2018-12-07] MEDS ORDERED: fentaNYL (PF) 50 MCG/ML 2 ML AMP ONE (08:01)
[2018-12-07] MEDS ORDERED: MIDAZOLAM 2 MG/2 ML VIAL ONE (08:01)
[2018-12-07] MEDS ORDERED: NEOSTIGMINE 1 MG/ML 10 ML VIAL ONE (08:01)
[2018-12-07] MEDS ORDERED: BUPIVACAINE (PF) 0.5% 30 ML VIAL SQ ONE (08:20)
[2018-12-07 10:52] VITALS: TEMP 97.4
[2018-12-07 11:18] VITALS: RESP 16
--- NOTE | 2018-12-07 11:35 | P.OP ---
Date of Procedure: 12/07/18 Description of Procedure: SURGEON: LINDA TRAN MD SURGEON: LINDA TRAN MD PREOPERATIVE DIAGNOSES: 1. Initial left inguinal hernia 2. Past history of breast cancer 3. Morbid obesity due to excess calories, BMI 41.4 4. Chronic depressive disorder 5. Hypertensive heart disease 6. Generalized anxiety disorder 7. Previous history of epigastric ventral hernia repair POSTOPERATIVE DIAGNOSES: 1. Initial left inguinal hernia, incarcerated with small bowel, partial small bowel obstruction 2. Past history of breast cancer 3. Morbid obesity due to excess calories, BMI 41.4 4. Chronic depressive disorder 5. Hypertensive heart disease 6. Generalized anxiety disorder 7. Previous history of epigastric ventral hernia repair OPERATION: 1. Robotic-assisted da Tip Xi laparoscopic repair of initial incarcerated left indirect inguinal hernia with mesh, 11.[address] 2. Resection of incarcerated left inguinal lipoma, 4 cm x 5cm ANESTHESIA: General with local anesthetic ESTIMATED BLOOD LOSS: 5 mL. SPECIMENS: 1. Incarcerated left inguinal hernia sac 2. Left inguinal lipoma COMPLICATIONS: None. FINDINGS: 1. Incarcerated left inguinal hernia over 4 cm incorporating small bowel over 2 feet 2. No hernias along the right inguinal area 3. Small bowel incarceration reduced without ischemia or infarction from left inguinal hernia 4. Peritoneal adhesions epigastrium from previous ventral hernia repair INDICATIONS: The patient is a 78-year-old female who presents with history of left inguinal hernia. Now she presents for definitive surgical intervention. Laparoscopic versus open and robotic approaches were discussed including bilateral approach. Benefits and risks including bleeding, infection, chronic groin pain were reviewed. Placement of mesh was also described. Informed consent was obtained. DESCRIPTION: In the preoperative area, an abdominal block was placed per anesthesia. The patient was brought to the operating room and initially laid in supine position. The abdomen had been prepped and draped in standard sterile fashion. [place] draping was also placed. Prior to incision, a timeout protocol was confirmed with surgical team regarding patient's name including procedures to be performed. Initial positioning for the robotic assisted ports were selected whereby 20 cm superior to the target anatomy, 0 degree 5 mm laparoscopic trocar entry was performed at the left upper quadrant. The abdomen was insufflated to 15 mmHg which she had tolerated well. Diagnostic laparoscopy demonstrated no injury to bowel, viscera or mesentery. Incarcerated small bowel was found along the left groin. Next, along the epigastrium, 8 mm robot trocar was placed. An 8-mm robotic trocar was placed under direct visualization at the right upper quadrant. An 8 mm port was placed at the left upper quadrant. All trocars were positioned between 10-cm apart from each other. The Bee Shield XI robot was primed, draped, prepared for docking along upper abdomen of the patient. The patient was positioned 16 steep Trendelenburg position. I then went to the Bee Shield Xi console. The sales assistant displays was at bedside for exchange of the robot arms and equipment. A very large left inguinal defect was confirmed as the small bowel was reduced from the left groin after direct pressure over the inguinal area was placed by the sales assistant displays. Next, careful attention along the left groin demonstrated 4-cm hernia with the sac extending to the labia. A large indirect hernia was confirmed. The left inguinal hernia sac was evaginated whereby the peritoneum was scored using Endo scissors with cautery. As the hernia sac extended into the groin, complete resection of the sac was incomplete. Additionally, a 4 x 5 cm left inguinal lipoma was reduced. The peritoneal sac of the hernia was stripped along a tightly incarcerated inguinal hernia involving a large 4-cm left inguinal lipoma. The lipoma and sac was resected and then passed off for further pathological analysis. The size of the hernia defect was 4 cm with intraoperative films obtained. Using a 2-0 VLOC, the peritoneal defect of the right inguinal hernia site was closed using a running suture. The defect was found to be completely closed with complete reduction of the right direct inguinal hernia was confirmed. As an onlay, an 11.[address] mesh by [employer] was initially cut in half and entered into the abdominal cavity via the 8 mm trocar. The mesh was tacked to the pelvis using 2-0 VLOC 9-inch length sutures. A final endoscopic imaging was obtained. The robot was undocked from the patient's bedside. I then rescrubbed into the case. Insufflation was released from the abdominal cavity and all instruments were removed from the abdominal cavity. The rest of incisions were reapproximated using 4-0 Monocryl in a running subcuticular fashion. Local anesthetic was placed along the incision including for a bilateral groin block. Incisions were cleansed using dilute hydrogen peroxide. Liquid glue was applied to the skin. At the end of the procedure, the needle, sponge and instrument counts had been verified correct by the surgical assistant certified. The patient had tolerated the procedure well and was taken to the postanesthesia care unit in stable condition. Plan - Discharge Summary Discharge Rx Participant: No New Discharge Prescriptions: Continue Lisinopril-Hctz 20-25 mg [Zestoretic 20-25] 1 tab PO DAILY Acetaminophen [Tylenol] 500 mg PO Q4-6H PRN PRN Reason: Pain Citalopram Hydrobromide [CeleXA] 10 mg PO HS ALPRAZolam [Alprazolam] 0.25 mg PO TID PRN PRN Reason: Anxiety Calcium/Magnesium/Zinc [Jkqosxn-Umvegwyct-Pbul Tablet] 1 each PO DAILY Aspirin EC [Ecotrin] 325 mg PO DAILY PRN PRN Reason: Headache Multivit-Min/Iron/Folic/Lutein [Centrum Silver Women Tablet] 1 each PO DAILY Fluticasone Nasal [place] [Flonase Nasal [place]] 1 spray EA NOSTRIL DAILY PRN PRN Reason: allergies Cholecalciferol [Vitamin D3 (25 Mcg = 1000 Iu)] 1,000 unit PO DAILY diphenhydrAMINE [Benadryl] 25 mg PO DAILY PRN PRN Reason: allergies Ibuprofen [Motrin] 600 mg PO Q8HR PRN #30 tab PRN Reason: Pain Discharge Medication List Lisinopril-Hctz 20-25 mg [Zestoretic 20-25] 1 tab PO DAILY 12/07/13 [History] ALPRAZolam [Alprazolam] 0.25 mg PO TID PRN 07/17/16 [History] Acetaminophen [Tylenol] 500 mg PO Q4-6H PRN 07/17/16 [History] Citalopram Hydrobromide [CeleXA] 10 mg PO HS 07/17/16 [History] Calcium/Magnesium/Zinc [Cynqdux-Gspsuiggh-Bpxs Tablet] 1 each PO DAILY 07/24/16 [History] Aspirin EC [Ecotrin] 325 mg PO DAILY PRN 05/09/17 [History] Multivit-Min/Iron/Folic/Lutein [Centrum Silver Women Tablet] 1 each PO DAILY 05/09/17 [History] Cholecalciferol [Vitamin D3 (25 Mcg = 1000 Iu)] 1,000 unit PO DAILY 09/10/18 [History] Fluticasone Nasal [place] [Flonase Nasal [place]] 1 spray EA NOSTRIL DAILY PRN 09/10/18 [History] diphenhydrAMINE [Benadryl] 25 mg PO DAILY PRN 09/10/18 [History] Ibuprofen [Motrin] 600 mg PO Q8HR PRN #30 tab 09/11/18 [Rx] Follow up Appointment(s)/Referral(s): Linda Tran MD [STAFF PHYSICIAN] - 12/29/18 Patient Instructions/Handouts: *Surgery [facility] - (Anesthesia) Discharge Instructions Outpatient Surgery, Laparoscopic Herniorrhaphy (DC), Inguinal Hernia Repair (DC) Activity/Diet/Wound Care/Special Instructions: No lifting over 4 pounds in 4 weeks, 01/07/2019. May shower. No bath tub soaks or swimming until 12/17/2018. Please take ibuprofen or Tylenol for pain Discharge Disposition: HOME SELF-CARE
[2018-12-07 12:56] VITALS: BP 123/72; PULSE 74
== END 2018-12-07 13:23 | disposition home or self-care (01) ==
LOC: OR 06:16
PROVIDERS: ATTEND Surgery Plastic and Reconstructive Surgery
DX: K40.30 Unilateral inguinal hernia, with obstruction, without gangrene, not specified as recurrent (principal); K40.90 Unilateral inguinal hernia, without obstruction or gangrene, not specified as recurrent; D17.1 Benign lipomatous neoplasm of skin and subcutaneous tissue of trunk; K66.0 Peritoneal adhesions (postprocedural) (postinfection); I11.9 Hypertensive heart disease without heart failure; F32.9 Major depressive disorder, single episode, unspecified; Z85.3 Personal history of malignant neoplasm of breast; C55 Malignant neoplasm of uterus, part unspecified; F41.1 Generalized anxiety disorder; E66.01 Morbid (severe) obesity due to excess calories; Z68.41 Body mass index [BMI] 40.0-44.9, adult; E07.9 Disorder of thyroid, unspecified; E89.2 Postprocedural hypoparathyroidism; Z87.09 Personal history of other diseases of the respiratory system; K57.90 Diverticulosis of intestine, part unspecified, without perforation or abscess without bleeding; Z90.49 Acquired absence of other specified parts of digestive tract; Z90.710 Acquired absence of both cervix and uterus; Z80.3 Family history of malignant neoplasm of breast; Z80.1 Family history of malignant neoplasm of trachea, bronchus and lung; Z79.899 Other long term (current) drug therapy; Z88.5 Allergy status to narcotic agent
CPT/HCPCS: 64486; 88304; 88302; 49650; C1781; J2250 ×2; J1644; J1100; J2710; J2405; J2001; J3010; J2795; J0330; J2704; J0690